=== PATIENT | female | born 1955 | race Caucasian/White ===

== ENCOUNTER 2018-09-01 06:33 | Inpatient (IN) ==
--- NOTE | 2018-08-01 08:34 | Anesthesiology Consultation ---
Date of Service August 01, 2018 Assessment & Plan (1) Encounter for pre-operative examination: Plan: PATIENT GOES BY "SILAS" Chart Review Chart Review: Acceptable Risk for Surgery and Patient seen in Pre Admission Testing Teaching & Discussion Instructed NPO after midnight before surgery, except medications with 15 cc of water. Medication instructions provided according to the PAT guidelines. History Surgery Operation Date: 09/01/18 07:00 Proposed Procedures p Left Total Knee Arthroplasty - Elvis S Charley Height/Weight Height: 5 ft 9 in Weight: 119.4 kg Allergies Allergy/AdvReac Type Severity Reaction Status Date / Time aspirin Allergy Unknown Rash Verified 07/25/18 09:57 Cephalosporins Allergy Unknown RASH & Verified 07/25/18 09:57 FACIAL SWELLING moxifloxacin [From Avelox] Allergy Unknown Hives Verified 07/25/18 09:57 Penicillins Allergy Unknown Rash & Verified 07/25/18 09:57 SWELLING OF FACE Medications Home Medications Medication Instructions Recorded Confirmed Last Taken cholecalciferol (vitamin D3) 2,000 unit PO DAILY 07/25/18 07/25/18 Unknown [Vitamin D3] cyanocobalamin (vitamin B-12) 1,000 mcg PO DAILY 07/25/18 07/25/18 Unknown [Vitamin B-12] ferrous sulfate [Iron (ferrous 325 mg PO DAILY 07/25/18 07/25/18 Unknown sulfate)] hydrocodone-acetaminophen 1 tab PO Q4WK PRN 07/25/18 07/25/18 Unknown hyoscyamine sulfate 0.125 mg PO QID PRN 07/25/18 07/25/18 Unknown omeprazole 20 mg PO QAM 07/25/18 07/25/18 Unknown pindolol 5 mg PO BID 07/25/18 07/25/18 07/25/18 tramadol 1 - 2 tab PO Q6H PRN 07/25/18 07/25/18 Unknown Past Medical History Medical History Acid reflux Hiatal hernia History of anxiety History of endoscopy IBS (irritable bowel syndrome) Low ferritin level Low iron Obesity Osteoarthritis PVC's (premature ventricular contractions) pt follows yearly with cardio for this; on beta sanjay. Past Family History Family History Father History of lung cancer Mother History of lung cancer Brother Family history of prostate cancer Family history of testicular cancer Past Surgical History Surgical History History of D&C X4 History of ankle surgery R TENDON REPAIR History of cardiac cath LOW POTASSIUM LEVEL...ARYHTMIA..CATH..NO FINDINGS/NO STENTS (2002) History of colonoscopy History of laparoscopic cholecystectomy History of partial hysterectomy OVARIES REMAIN History of tonsillectomy Past Anesthesia History No Hx of Anesthesia Complications and No Family Hx of Anesthesia Complications History of PONV No Motion Sickness Screening History of Motion Sickness: No Social History Smoking Status: Never smoker Do You Dip or Chew Tobacco: No Hx Alcohol Use: Yes Alcohol type: beer and wine alcohol intake frequency: other Alcohol Intake Frequency Comment: SOCIAL/OCC Hx Substance Use: No substance use type: does not use Exercise / Class Metabolic Activity II 4-5 Yardwork/Stairs/Walk up hill (DOES FULL FLIGHT OF STAIRS REGULARLY, MILD SOB 2/2 KNEE PAIN, NO CP) Review of Systems Pt denies any recent chest pain, shortness of breath, palpitations, cough, fever or URI. +Influenza A "around New Years", resolved Physical Exam Vital Signs BP: 109/71 P: 65bpm SPO2: 97% RA T: 97.7 F R: 16 ENMT Mouth: + dentures (partial upper) and + dental restorations (caps); no chipped teeth and no loose teeth Thyromental Distance: > or= 3.5 Finger Breadths Mallampati Class: III Neck normal visual inspection; neck extension not limited Respiratory normal respiratory effort Auscultation: lungs clear to auscultation bilaterally Cardiovascular Rate/Rhythm: regular rate and regular rhythm Heart Sounds: no murmur Vessels: no carotid bruit Extremities: no edema Testing Electrocardiogram Date: 10/15/17 Findings: + SB @ (59) Possible lateral infarct. *done at routine cardiology appt and reviewed by foundation relations director. Pt with good functional status and echo WNL 2017. Chest X-Ray Date: 08/01/18 1. No acute process within the chest. 2. Peripherally calcified lesion within the left upper quadrant which measures 10 cm. This favors a calcified splenic cyst. Echocardiogram Date: 11/19/16 EF: 55% Mild LVH. Normal wall motion. Normal left ventricular systolic function. Mild TR, MR, PI. Normal pulmonary artery pressures. There is normal left ventri cular diastolic function. Laboratory Results 08/01/18 08:41 08/01/18 08:41 Blood Type O Positive 08/01/18 08:41 Antibody Screen NEGATIVE 08/01/18 08:41 PT 9.8 Seconds (9.0-12.0) 08/01/18 08:41 INR 1.0 (0.9-1.1) 08/01/18 08:41 APTT 26.8 Seconds (21.0-31.0) 08/01/18 08:41 Urine Color Yellow 08/01/18 08:41 Urine Appearance Clear (Clear) 08/01/18 08:41 Urine pH 6.5 (4.5-7.5) 08/01/18 08:41 Ur Specific [place] 1.007 (1.000-1.030) 08/01/18 08:41 Urine Protein Negative (Negative) 08/01/18 08:41 Urine Glucose (UA) Negative (Negative) 08/01/18 08:41 Urine Ketones Negative (Negative) 08/01/18 08:41 Urine Nitrite Negative (Negative) 08/01/18 08:41 Ur Leukocyte Esterase Negative (Negative) 08/01/18 08:41 MRSA swab NEGATIVE.
--- NOTE | 2018-08-01 08:41 | PAT Medication Instructions ---
Medication Instructions Date of Service August 01, 2018 Home Medications cholecalciferol (vitamin D3) 2,000 unit PO DAILY cyanocobalamin (vitamin B-12) 1,000 mcg PO DAILY ferrous sulfate [Iron (ferrous sulfate)] 325 mg PO DAILY hydrocodone-acetaminophen 1 tab PO Q4WK PRN hyoscyamine sulfate 0.125 mg PO QID PRN omeprazole 20 mg PO QAM pindolol 5 mg PO BID tramadol 1 - 2 tab PO Q6H PRN DO NOT take the morning of surgery cholecalciferol (vitamin D3) 2,000 unit PO DAILY cyanocobalamin (vitamin B-12) 1,000 mcg PO DAILY ferrous sulfate [Iron (ferrous sulfate)] 325 mg PO DAILY hyoscyamine sulfate 0.125 mg PO QID PRN Take morning of surgery With a small sip of water, OTHERWISE NOTHING TO EAT OR DRINK AFTER MIDNIGHT: hydrocodone-acetaminophen 1 tab PO Q4WK PRN (if needed, may be taken up to four hours before surgery) omeprazole 20 mg PO QAM pindolol 5 mg PO BID tramadol 1 - 2 tab PO Q6H PRN (if needed, may be taken up to four hours before surgery) Take evening before surgery hydrocodone-acetaminophen 1 tab PO Q4WK PRN (if needed) hyoscyamine sulfate 0.125 mg PO QID PRN (if needed) omeprazole 20 mg PO QAM pindolol 5 mg PO BID tramadol 1 - 2 tab PO Q6H PRN (if needed) Other Notes If you have any questions please call us at [phone] or [phone] or [phone] or [phone]
--- NOTE | 2018-08-01 09:13 | XRay Report ---
XR chest Pre-admission PA/Lat HISTORY: Preop. COMPARISON: None. FINDINGS: No pneumothorax. No pleural effusions. The heart is normal in size. Retrocardiac rounded de nsity favors a small hiatus hernia. The lungs are clear. Peripherally calcified lesion which is parti ally visualized within left upper quadrant. This measures 10 cm. This favors a calcified splenic cyst . IMPRESSION: 1. No acute process within the chest. 2. Peripherally calcified lesion within the left upper quadrant which measures 10 cm. This favors a c alcified splenic cyst. Electronically signed by: Aidan Murphy M.D. 08/01/2018 9:12 AM
[2018-08-01 09:34] LABS: Basophils # (auto) 0.04 K/uL (0-0.2); Basophils % (auto) 0.7 %; Eosinophils # (auto) 0.17 K/uL (0-0.5); Eosinophils % (auto) 3.1 %; Hematocrit (blood only) 37.8 % (37-47); Hemoglobin 12.1 g/dL (12.0-16.0); Immature Granulocytes # (auto) 0.01 K/uL (0.00-0.02); Immature Granulocytes % (auto) 0.2 %; Lymphocytes # (auto) 1.84 K/uL (1.2-3.4); Lymphocytes % (auto) 33.9 %; Mean Corpuscular Volume 80.4 fL (80-100); Monocytes # (auto) 0.44 K/uL (0.11-0.59); Monocytes % (auto) 8.1 %; Neutrophils # (auto) 2.92 K/uL (1.4-6.5); Platelet Count 281 K/uL (130-400); RDW Coefficient of Variation 15.7 % (11.5-14.5); RDW Standard Deviation 46.2 fL (36.4-46.3); White Blood Count 5.42 K/uL (4.8-10.8)
[2018-08-01 09:40] LABS: Appearance Urine Clear (Clear); Bilirubin Urine Negative (Negative); Blood Urine Negative (Negative); Color Urine Yellow; Glucose Urine UA Negative (Negative); Ketones Urine Negative (Negative); Leukocyte Esterase Urine Negative (Negative); Nitrite Urine Negative (Negative); Protein Urine Negative (Negative); Specific Gravity Urine 1.007 (1.000-1.030); Urobilinogen Urine Negative (Negative); pH Urine 6.5 (4.5-7.5)
[2018-08-01 09:50] LABS: Partial Thromboplastin Time 26.8 Seconds (21.0-31.0); Prothrombin Time 9.8 Seconds (9.0-12.0)
[2018-08-01 09:53] LABS: Albumin Level 3.5 gm/dl (3.4-5.0); BUN Creatinine Ratio 10.6 (10-20); Creatinine Clr Calc Pharmacy 71.1 ml/min; Est GFR (African American) 63.8; Est GFR (Non-African American) 55.1; Potassium 4.2 mmol/L (3.5-5.1)
[2018-08-01 09:56] LABS: Albumin Globulin Ratio 1.1 (0.9-2); Bilirubin,Total 0.3 mg/dl (0.2-1); Globulin 3.3 gm/dl (2.5-4.0); Total Protein 6.8 gm/dl (6.4-8.2)
--- NOTE | 2018-08-31 09:31 | History & Physical Report ---
Date of Service August 31, 2018 Assessment & Plan (1) Degenerative joint disease of left knee: Pt is to be admitted and undergo left TKA History of Present Illness Chief Complaint: left knee pain Primary Care Provider: Brittani Saavedra Left knee pain for years. Pt has had multiple cortisone injections, nsaids and therapy with no relief. She is ready for Left TKA Allergies Allergy/AdvReac Type Severity Reaction Status Date / Time aspirin Allergy Intermediate Rash Verified 08/26/18 10:05 Cephalosporins Allergy Intermediate RASH & Verified 08/26/18 10:05 FACIAL SWELLING moxifloxacin [From Avelox] Allergy Intermediate Hives Verified 08/26/18 10:05 Penicillins Allergy Intermediate Rash & Verified 08/26/18 10:05 SWELLING OF FACE Home Medications Home Medications Medication Instructions Recorded Confirmed Type cholecalciferol (vitamin D3) 2,000 unit PO DAILY 07/25/18 07/25/18 History [Vitamin D3] cyanocobalamin (vitamin B-12) 1,000 mcg PO DAILY 07/25/18 07/25/18 History [Vitamin B-12] ferrous sulfate [Iron (ferrous 325 mg PO DAILY 07/25/18 07/25/18 History sulfate)] hydrocodone-acetaminophen 1 tab PO Q4WK PRN 07/25/18 07/25/18 History hyoscyamine sulfate 0.125 mg PO QID PRN 07/25/18 07/25/18 History omeprazole 20 mg PO QAM 07/25/18 07/25/18 History pindolol 5 mg PO BID 07/25/18 07/25/18 History tramadol 1 - 2 tab PO Q6H PRN 07/25/18 07/25/18 History Past Med/Surg History Medical History Acid reflux Hiatal hernia History of anxiety History of endoscopy IBS (irritable bowel syndrome) Low ferritin level Low iron Obesity Osteoarthritis PVC's (premature ventricular contractions) pt follows yearly with cardio for this; on beta sanjay. Surgical History History of D&C X4 History of ankle surgery R TENDON REPAIR History of cardiac cath LOW POTASSIUM LEVEL...ARYHTMIA..CATH..NO FINDINGS/NO STENTS (2002) History of colonoscopy History of laparoscopic cholecystectomy History of partial hysterectomy OVARIES REMAIN History of tonsillectomy Family History Father History of lung cancer Mother History of lung cancer Brother Family history of prostate cancer Family history of testicular cancer Social History Preferred Language: Nepali Communication Ability: Effective Insurance Billing Specialist Required: No Beliefs That Will Affect Care: None Current Living Situation: Other Current Living Situation Comment: LIVES WITH SON Other Information That Helps Us Care for You: No Feels Safe at Home: Yes Smoking Status: Never smoker Hx Alcohol Use: Yes Hx Substance Use: No Physical Exam Constitutional: WD/WN, vitals as above Neck: trachea midline, no thyromegaly Respiratory: normal respiratory effort, lungs clear to auscultation Cardiovascular: RRR, no murmur, no edema Gastrointestinal (Abdomen): normal bowel sounds, soft, nontender, no hepatosplenomegaly Musculoskeletal: Knee: + limited ROM of knee, + knee ROM with crepitation, + joint line tenderness and + varus alignment
[~2018-09-01 06:33] MED LIST: ACETAMINOPHEN 500 MG TAB PO SCH; CEFAZOLIN 2000MG 2,000 MG/15 ML SYR IV SCH; CeleBREX 200 MG CAP PO SCH; FAMOTIDINE 20 MG TAB PO SCH; LR 500ML BOLUS, THEN 15ML/HR IV SCH; LR 60ML/HR IV SCH; METOCLOPRAMIDE HCL 10 MG TABLET PO SCH; MIDAZOLAM HCL 1 MG/ML 2ML VIAL ONE; ROPIVACAINE 0.5% HCL/PF 150 MG, BUPIVACAINE 0.5% MPF 30 ML, EPINEPHrine 30MG/30ML (OR U... INFIL SCH; TRANEXAMIC ACID 1,000 MG **IV Intra-op IV SCH; TRANEXAMIC ACID 1,000 MG **IV Pre-op IV SCH; VANCOMYCIN HCL 1,000 MG/270 ML BAG IV SCH; [UNRECOGNIZED DRUG - REMARK] SCH; dexAMETHasone 4 MG TAB PO SCH; fentaNYL citrate 100 MCG/2 ML VIAL ONE
[2018-09-01] MEDS ORDERED: ROPIVACAINE 0.5% 5 MG/ML 30 ML VIAL ONE (06:37)
[2018-09-01] MEDS ORDERED: BUPIVACAINE 0.5 % 5 MG/1 ML PF 10ML VIAL ONE (06:37)
--- NOTE | 2018-09-01 06:47 | History & Physical Bridge Note ---
Date of Service September 01, 2018 History & Physical Bridge Note I have examined the patient, reviewed the History & Physical and in the interval since the performance of the History & Physical I have noted the following changes of clinical significance: no changes noted
[2018-09-01] MEDS ORDERED: CEFAZOLIN 2000MG 2,000 MG/15 ML SYR IV ONE (06:53)
[2018-09-01] MEDS ORDERED: POVIDONE-IODINE OP SOLN 30 ML BTL ONE (06:57)
[2018-09-01] MEDS ORDERED: ORTHO JOINT ANESTHETIC ONE (06:57)
[2018-09-01] MEDS ORDERED: BACITRACIN INJ 50,000 UNIT VIAL ONE (06:58)
[2018-09-01] MEDS ORDERED: CEFAZOLIN 2,000 MG/15 ML IV PUSH IV ONE (07:11)
[2018-09-01] MEDS ORDERED: VANCOMYCIN CONSULT ACTIVE PRN ×2 (07:42→11:42)
[2018-09-01] MEDS ORDERED: VANCOMYCIN HCL 1 GM/270 ML BAG ONE (07:45)
[2018-09-01] MEDS ORDERED: GENTAMICIN SULFATE 80 MG in DEXTROSE 5% 100 ML IV SCH (08:00)
[2018-09-01] MEDS ORDERED: MIDAZOLAM HCL 1 MG/ML 2ML VIAL ONE (08:37)
[2018-09-01] MEDS ORDERED: ePHEDrine sulfate 50 MG/ML SYR ONE (09:17)
[2018-09-01] MEDS ORDERED: PROPOFOL IV EMULSION 10 MG/ML 20 ML VIAL IV ONE (09:17)
[2018-09-01] MEDS ORDERED: PHENYLEPHRINE 100MCG/ML 5ML SYR ONE (09:17)
--- NOTE | 2018-09-01 09:22 | Operative Report ---
Post Operative Report Pre & Post Diagnosis Operation Date: 09/01/18 08:20 Pre-Op Diagnosis: Left Knee Osteoarthritis Post-Op Diagnosis: Left Knee Osteoarthritis Procedure Operation Date: 09/01/18 08:20 Actual Procedures p Left Total Knee Arthroplasty(Left) - Elvis Whitehead Surgeon Elvis Whitehead [employer] Processor Dayne Gibson Estimated Blood Loss 10 Findings Consistent with Post-Op Diagnosis Specimens none Complications none Disposition Accompanied Patient To Recovery: No Disposition: Recovery Room Description of Procedure IMPLANTS USED: [place] triathlon posterior stabilized size 5 cemented femoral component, a size 4 universal baseplate, a size 9 TS insert and a size 35 all polyethylene patella (For a Angelica knee) INDICATIONS: Mrs. Erazo is a pleasant (male/female) who has unfortunately failed all forms of conservative measures. Therefore, they have decided to undergo elective surgical intervention. All risks and benefits of the surgery were discussed with the patient and the family in entirety. PROCEDURE: The patient was brought to the operating room and properly identified by myself, anesthesia, and staff. Patient was given a spinal anesthesia and placed on the operating table in the supine position. Tourniquets were applied to the left upper thigh. The leg was then prepped and draped in usual sterile fashion. We made a standard midline approach over the patella and dissected down through the subcutaneous tissue to identify the capsule and performed a medial capsulotomy with the patella everted and the knee flexed. We then removed the spurs from around the femur and proximal tibia. I then put in a pilot plant supervisor hole in the femur, put the IM cutting guide into place in approximately 5 degrees of valgus, and then the distal femoral cut was made. The femur measure to be a size 5. This was then put into place. We made the appropriate cuts and then placed a retractor behind the proximal tibia to retract anteriorly. We then placed the extramedullary cutting guide in place, made sure we had the appropriate varus and valgus alignment and appropriate slope, and the proximal tibia cut was made. It measured to be a size 4. A size 4 guide was then put in place. We used the tibial punch then put the trial components into place. We had very good range of motion, excellent stability, and excellent patella tracking. We removed the trial components and irrigated the wound. We impacted the components in place using antibiotic cement. All excess cement was removed. We then irrigated the wound once more. We closed the capsule with 0 PDS suture, deep dermis with 2-0 Vicryl, and finally the skin with yarely. A sterile dressing was applied. The patient was taken to the recovery room in stable condition. Due to the complex nature of the procedure, the entire surgery was performed with the operational assistance of Dayne MCCRARY. The client account assistant was under direct supervision, was involved in the actual performance of all aspects of the surgical procedure including hemostasis, tissue retraction and incision, instrument management, patient positioning, and wound closure. I attest to the content of the Intraoperative Record and any orders documented therein. Any exceptions are noted below.
[2018-09-01] MEDS ORDERED: ATROPINE SULFATE 0.1 MG/ML 10ML SYR IV PRN (10:37)
[2018-09-01] MEDS ORDERED: ePHEDrine sulfate 50 MG/ML AMP IV PRN (10:37)
[2018-09-01] MEDS ORDERED: fentaNYL citrate 100 MCG/2 ML VIAL IV PRN (10:37)
[2018-09-01] MEDS ORDERED: ONDANSETRON INJ 2 MG/ML 2 ML VIAL IV PRN ×2 (10:37→11:42)
--- NOTE | 2018-09-01 10:38 | Anesthesiology Progress Note ---
Date of Service September 01, 2018 Anesthesia Post Procedure Vital Signs Vital Signs: Temp Pulse Pulse Resp BP Pulse Ox 09/01/18 10:30 63 15 119/62 95 09/01/18 10:20 61 15 114/57 L 93 09/01/18 10:10 65 14 114/66 95 09/01/18 10:00 64 19 117/76 96 09/01/18 09:56 96.8 F L 62 14 112/71 96 09/01/18 06:57 98.1 F 72 20 127/77 97 Pain Intensity Left Knee: Pain Intensity: 0 Notes Mental Status: alert / awake / arousable and participated in evaluation Patient Amnestic to Procedure: Yes Nausea / Vomiting: adequately controlled Pain: adequately controlled Airway Patency, RR, SpO2: stable & adequate BP & HR: stable & adequate Hydration State: stable & adequate Neuraxial Anesthesia: was administered and sensory block is resolving Anesthetic Complications: no major complications apparent and Pt Satisfied with anesthetic care
[2018-09-01] MEDS ORDERED: SODIUM CHLORIDE 0.9% 1000ML 1,000 ML IV SCH (11:42)
[2018-09-01] MEDS ORDERED: METOCLOPRAMIDE HCL INJ 5 MG/ML 2 ML VIAL IV PRN (11:42)
[2018-09-01] MEDS ORDERED: BISACODYL 10 MG SUPP PR PRN (11:42)
[2018-09-01] MEDS ORDERED: ALUMINUM/MAGNESIUM SUSP 30 ML UDC PO PRN (11:42)
[2018-09-01] MEDS ORDERED: VANCOMYCIN HCL 1,750 MG in SODIUM CHLORIDE 0.9% 250 ML IV SCH (11:42)
[2018-09-01] MEDS ORDERED: MAGNESIUM HYDROXIDE SUSP 30 ML UDC PO PRN (11:42)
[2018-09-01] MEDS ORDERED: NALOXONE HCL 0.4 MG/1 ML VIAL/CARP IV PRN (11:42)
[2018-09-01] MEDS: ACETAMINOPHEN 500 MG TAB PO SCH ×2 (14:54→21:19)
[2018-09-01] MEDS: OXYCODONE HCL IR 5 MG TAB (IMMEDIATE RELEASE) PO PRN ×2 (14:54→19:28)
[2018-09-01] MEDS ORDERED: TRANEXAMIC ACID 1,000 MG in 0.9 % SODIUM CHLORIDE 100 ML IV SCH (15:30)
[2018-09-01] MEDS ORDERED: VANCOMYCIN HCL 1,750 MG in SODIUM CHLORIDE 0.9% 500 ML IV SCH (20:00)
[2018-09-01] MEDS: DOCUSATE SODIUM 100 MG CAP PO SCH (20:01)
[2018-09-01] MEDS ORDERED: SENNA 8.6 MG TAB PO SCH (21:00)
[2018-09-01] MEDS: PINDOLOL 5 MG PO SCH (21:19)
[2018-09-02] MEDS: OXYCODONE HCL IR 5 MG TAB (IMMEDIATE RELEASE) PO PRN ×4 (01:05→14:02)
[2018-09-02] MEDS: ACETAMINOPHEN 500 MG TAB PO SCH ×2 (05:46→14:02)
[2018-09-02 06:28] LABS: Hematocrit (blood only) 32.7 % (37-47); Hemoglobin 10.5 g/dL (12.0-16.0); Mean Corpuscular Hgb Conc 32.1 g/dL (32-36); Mean Corpuscular Volume 80.3 fL (80-100); Platelet Count 224 K/uL (130-400); RDW Coefficient of Variation 15.2 % (11.5-14.5); RDW Standard Deviation 44.4 fL (36.4-46.3); Red Blood Count 4.07 M/uL (4.2-5.4); White Blood Count 10.41 K/uL (4.8-10.8)
[2018-09-02 06:58] LABS: BUN Creatinine Ratio 13.1 (10-20); Calcium 8.6 mg/dl (8.5-10.1); Est GFR (African American) 79.9; Est GFR (Non-African American) 68.9
[2018-09-02] MEDS ORDERED: dexAMETHasone 10 MG in SYRINGE 0 ML IV SCH (08:00)
--- NOTE | 2018-09-02 08:24 | Anesthesiology Progress Note ---
Date of Service September 02, 2018 Anesthesia Post Procedure Vital Signs Vital Signs: Temp Pulse Pulse Resp BP Pulse Ox 09/02/18 08:18 36.4 C L 81 18 124/65 98 09/02/18 03:44 36.8 C 85 18 113/59 L 97 09/01/18 23:46 36.4 C L 71 18 107/68 95 09/01/18 21:16 73 116/69 09/01/18 19:14 36.6 C 68 20 120/77 96 09/01/18 14:59 36.3 C L 69 20 116/71 96 09/01/18 13:29 36.3 C L 69 17 118/74 98 09/01/18 12:27 36.4 C L 66 16 107/67 97 09/01/18 11:30 36.4 C L 59 L 16 112/72 96 09/01/18 11:10 36.3 C L 58 L 22 106/54 L 96 09/01/18 11:00 58 L 21 121/57 L 94 09/01/18 10:50 66 22 100/65 95 09/01/18 10:40 65 18 105/73 92 09/01/18 10:30 63 15 119/62 95 09/01/18 10:20 61 15 114/57 L 93 09/01/18 10:10 65 14 114/66 95 09/01/18 10:00 64 19 117/76 96 09/01/18 09:56 36.0 C L 62 14 112/71 96 Pain Intensity Left Knee: Pain Intensity: 7 Notes Mental Status: alert / awake / arousable and participated in evaluation Patient Amnestic to Procedure: Yes Nausea / Vomiting: adequately controlled Pain: adequately controlled Airway Patency, RR, SpO2: stable & adequate BP & HR: stable & adequate Hydration State: stable & adequate Neuraxial Anesthesia: was administered and sensory block resolved Anesthetic Complications: no major complications apparent and Pt Satisfied with anesthetic care
[2018-09-02] MEDS: DOCUSATE SODIUM 100 MG CAP PO SCH (08:39)
[2018-09-02] MEDS: PINDOLOL 5 MG PO SCH (08:40)
[2018-09-02] MEDS ORDERED: MULTIVITAMIN TAB PO SCH (09:00)
[2018-09-02] MEDS ORDERED: RIVAROXABAN 10 MG TABLET PO SCH (09:00)
[2018-09-02] MEDS ORDERED: FERROUS SULFATE 325 MG TAB PO SCH (09:00)
--- NOTE | 2018-09-02 13:31 | Orthopedic Progress Note ---
Date of Service September 02, 2018 Assessment & Plan (1) Degenerative joint disease of left knee: Status post left total knee arthroplasty postoperative day #1 -Ancef x24 -DVT prophylaxis Xarelto, SCDs and teds -A.m. labs hemoglobin 10.5 -PT/OT -Discharge planning home with home health today Subjective Post Operative Progress Note Patient seen sitting up in bed, comfortable, denies complaints, pain well controlled, no acute issues. Physical Exam Vital Signs (Past 24 Hours): Last Vital Signs Temp 36.4 C L 09/02/18 12:15 Pulse 72 09/02/18 12:15 Resp 18 09/02/18 12:15 BP 124/65 09/02/18 12:15 Pulse Ox 98 09/02/18 12:15 Physical Exam: LLE NVSI +EHL/FHL/TA/GS SILT grossly, +2 DP pulse, compartments soft NT, dressing cdi. Constitutional: WD/WN, vitals as above
--- NOTE | 2018-09-04 03:02 | Discharge Summary ---
DISCHARGE DIAGNOSIS: Left knee osteoarthritis. SECONDARY DIAGNOSES: Gastroesophageal reflux disease, anxiety, irritable bowel syndrome, low iron and ferritin levels, obesity, osteoarthritis, history of premature ventricular contractions. CONSULTATIONS: None. COMPLICATIONS: None. PROCEDURES: Left total knee arthroplasty performed by Dr. Whitehead on 09/01/2018. BRIEF HISTORY: As dictated in the history and physical. HOSPITAL SUMMARY: The patient was admitted on the above-noted date and had the above-noted surgery performed which she tolerated well. On the patient's first postoperative day, she was sitting in bed and was comfortable. Denied complaints. Pain was well controlled. No acute issues. Vital signs were stable. She was afebrile. Dressings were intact. Neurovascular was intact. Toes were mobile and she was remaining stable. She was started on a physical therapy protocol and continued on DVT prophylaxis and pain management. She proved to progress quite well with her physical therapy and she was remaining stable. The patient was seen by Dr. Méndez early in the afternoon and was in agreement that she could be discharged to home with home health services. For further review, please see chart. LABORATORY AND X-RAY DATA: As per chart. DISCHARGE INSTRUCTIONS: The patient was discharged to home in satisfactory condition on 09/02/2018. DIET: Regular. ACTIVITY: Weightbearing as tolerated, left lower extremity. Follow TK instruction sheets and special care instructions as noted per Dr. Whitehead's instructions. Dressing and drain will be removed by home health services. Take Xarelto for 2 weeks. This is her blood thinner. Follow up with Dr. Whitehead in 2 weeks. The patient is to call for appointment if one has not been made for you. DISCHARGE MEDICATIONS: Acetaminophen 1000 mg p.o. q. 8 hours, doxycycline 100 mg p.o. b.i.d., oxycodone 5 mg p.o. q. 4-6 hours p.r.n., sennosides 17.2 mg p.o. at bedtime, Xarelto 10 mg p.o. daily. Resume home meds as listed. Stop taking hydrocodone and tramadol.
== END 2018-09-02 14:34 | disposition home health service (06) | DRG 470 ==
LOC: ASU 06:33 → 3E 10:14